=== PATIENT | female | born 1965 | race Caucasian/White ===

== ENCOUNTER 2024-03-23 18:53 | Emergency (ER) | payer BC, SELFPAY ==
[2024-03-23 18:54] VITALS: BP 136/87
--- NOTE | 2024-03-23 22:14 | ED.GENMED ---
History of Present Illness
General
Chief Complaint: Back Pain
Time Seen by Provider: 03/23/24 22:14
History of Present Illness
History of Present Illness:
TIME OF INITIAL ENCOUNTER: 10:15 PM
HPI: Patient came in by ambulance due to low back pain since 4 PM. There is no injury. Denies bowel or bladder incontinence or retention. The pain was rather severe at its onset however she never had any abdominal pain, the pain was on both sides
along the waist in the low back and now spontaneously has improved without any intervention. She denies any back pain 'red flags'.
EXAM:
GENERAL: Well appearing in no distress, appears fairly comfortable
HEENT: Moist oral mucosa
BACK: There is no midline T or L-spine tenderness, no sacral tenderness, no CVA tenderness,
ABDOMEN: Soft with no peritoneal signs, no tenderness
NEUROLOGIC: Decreased strength left upper and left lower extremities and patient states this is no different than prior stroke, no coordination deficits, no sensory deficits
PSYCHIATRIC: Appropriate mental status, normal insight and judgement
EXTREMITIES: Nontender, no edema, moves all extremities equally
SKIN: No rash, no lesions
NUMBER AND COMPLEXITY OF PROBLEMS ADDRESSED AT THE ENCOUNTER
� Chronic conditions affecting care: Has had stroke in the past with left-sided deficits, high blood pressure
� Acute Exacerbation and/or Progression of Chronic Illness: This is an acute problem
� Differential Diagnosis includes: Muscle strain, muscle spasm, highly doubt fracture given the lack of trauma, scoliosis, back pain related to favoring the left lower extremity due to prior stroke
AMOUNT AND/OR COMPLEXITY OF DATA TO BE REVIEWED AND ANALYZED
� I performed an independent evaluation of and my interpretation is:
EKG:
CT:
X-rays: Lumbar x-rays reviewed, mild scoliosis noted., Some loss of height at L2 noted
Laboratory Studies:
Other:
� Review of other/old records: No old records available for review; I did review the notes from EMS
� Clinical information was obtained by an independent historian: I spoke to the at bedside
� Prescriptions/Medications Considered but not given:
� Further testing considered but not performed:
RISK OF COMPLICATIONS AND/OR MORBIDITY OR MORTALITY OF PATIENT MANAGEMENT
� Social determinants of health affecting care: Lives at home
� Discussion with other providers:
� Escalation of care including admission/observation vs risk of discharge considered: Although the pain was rather severe earlier, it is markedly improved without intervention. She never had any abdominal pain and has no
pulsatile masses. More of a muscular spasm/strain etiology. Will give a dose of Motrin. X-rays reviewed.
ANY OTHER UPDATES:
11:15 PM: I reassessed patient. Continues to feel well. Motrin was given. She will take NSAIDs at home.
Phy Exam
Physical Exam
Physical Exam:
See HPI
Course
Orders/Labs/Results
Orders:
Orders
03/23/24 18:58
Lumbar Spine Complete, 4 View [CR Lumbar Spine Comp Min 4 Vw*] Urgent
Comment:
Reason For Exam: pain
03/23/24 22:21
Ibuprofen [Motrin] 600 mg PO NOW STA
Vital Signs
Initial and Last Documented VS:
Initial Vital Signs
Temp Pulse Resp BP Pulse Ox
36.9 C 70 16 136/87 97
03/23/24 18:54 03/23/24 18:54 03/23/24 18:54 03/23/24 18:54 03/23/24 18:54
Last Documented Vital Signs
Temp Pulse Resp BP Pulse Ox
36.9 C 70 16 136/87 97
03/23/24 18:54 03/23/24 18:54 03/23/24 18:54 03/23/24 18:54 03/23/24 18:54
*Critical Care Note
Total Time (30-74mins, 75-104mins- exclusive of procedures): Not Applicable
ED Attending Note
-
Portions of this chart may have been created with voice recognition software.� Occasional wrong word or��sound alike� substitutions may have occurred due to the inherent limitations of voice recognition software.
Discharge Plan
Departure
Patient Disposition: Home (Routine Discharge)
Date of Disposition: 03/23/24
Time of Disposition: 23:14
Patient with high blood pressure during this ER visit?: Yes
Discharge Problem:
Low back pain
Instructions: Low Back Pain (DC)
Referrals:
Elisa Avila DO [Family Provider] -
Activity Restrictions/Additional Instructions:
Please follow-up with your primary care doctor. I recommend 3-4 [id number] ibuprofen (Motrin) every 8 hours with food for a few days. Return here if worse.
Interventions
Interventions:
*Risk Screen - Suicide Last Done: 03/23/24 18:54
*General Assessment Last Done: 03/23/24 22:51
*Neglect/Abuse Screening Last Done: 03/23/24 18:54
ED- Fall Risk Assessment Last Done: 03/23/24 22:51
*ED COVID-19 Vaccine History Last Done: 03/23/24 22:51
*Nursing Disposition Last Done: 03/23/24 23:34
ED-Musculoskeletal Assessment Last Done: 03/23/24 22:51
Discharge Date and Time
Discharge Date/Time: 03/23/24 23:35
Print Language: [place]
[2024-03-23] MEDS: MOTRIN 600 MG PO (22:29)
--- NOTE | 2024-03-23 23:20 | EDRN ---
Patient feeling better, Dr. Anderson in to speak with patient and patient to be discharged home.
== END 2024-03-23 23:35 | disposition home or self-care (01) ==
LOC: EMR 18:53
PROVIDERS: EMERGENCY PHYSICIAN Emergency Medicine; FAMILY PHYSICIAN Family Medicine
DX: M54.50 Low back pain, unspecified (principal); I69.354 Hemiplegia and hemiparesis following cerebral infarction affecting left non-dominant side; I10 Essential (primary) hypertension; M41.9 Scoliosis, unspecified
CPT/HCPCS: 99283; 72110